=== PATIENT | female | born 1955 | race American Indian/Alaskan Native ===

== ENCOUNTER 2016-10-22 12:22 | Outpatient (CLI) | payer OTHER ==
--- NOTE | 2016-10-23 07:36 | Vascular Lab Report ---
LOWER EXTREMITY VENOUS DUPLEX: REASON FOR EXAM: Pain and swelling of the lower extremities. COMMENTS ON THE RIGHT: All veins visualized are freely compressible without evidence of internal echogenicity. Flow is spontaneous and phasic throughout. COMMENTS ON THE LEFT: All veins visualized are freely compressible without evidence of internal echogenicity. Flow is spontaneous and phasic throughout. 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 IMPRESSION: No evidence of acute or chronic deep venous thrombosis in either lower extremity.
== END 2016-10-22 12:23 | disposition home or self-care (01) ==
LOC: VAS 12:22
PROVIDERS: ATTEND Family Medicine
DX: I82.402 Acute embolism and thrombosis of unspecified deep veins of left lower extremity (principal)
CPT/HCPCS: 93970

== ENCOUNTER 2018-02-11 09:07 | Day surgery (SDC) | payer OTHER ==
[~2018-02-11 09:07] MED LIST: ANCEF/STERILE WATER 2 GM/20 ML IV NR
[2018-02-11] MEDS ORDERED: MARCAINE 0.5% 30 ML INFILTRATI ONE (10:14)
[2018-02-11] MEDS ORDERED: XYLOCAINE 1% 20 mL ONE (10:14)
[2018-02-11] MEDS ORDERED: DILAUDID IV PRN (10:29)
[2018-02-11] MEDS ORDERED: ZOFRAN IV PRN (10:29)
[2018-02-11] MEDS ORDERED: LACTATED RINGERS 1,000 ML IV SCH ×2 (11:00)
[2018-02-11] MEDS ORDERED: VERSED IV NR (11:00)
--- NOTE | 2018-02-11 11:09 | Anesthesia Day of Surgery ---
Anesthesia Day of Surgery - Day of Surgery Patient Examined: Yes Patient H&P Reviewed: Yes Patient is NPO: Yes
--- NOTE | 2018-02-11 11:10 | Anesthesia Consultation ---
Anesthesia Consult and Med Hx Date of service: 02/11/18 - Airway Anesthetic Teeth Evaluation: Good ROM Head & Neck: Adequate Mental/Hyoid Distance: Adequate Mallampati Class: Class II Intubation Access Assessment: Probably Good - Pulmonary Exam CTA: Yes - Cardiac Exam Cardiac Exam: RRR - Pre-Operative Health Status ASA Pre-Surgery Classification: ASA3 Proposed Anesthetic Plan: MAC (Morbid Obesity) - Pulmonary Hx Smoking: Yes Hx Asthma: No COPD: No Hx Pneumonia: No - Cardiovascular System Hx Hypertension: Yes - Endocrine Hx End Stage Renal Disease: No Hx Non-Insulin Dependent Diabetes: No - Hematic Hx Anemia: Yes (RESOLVED) - Other Systems Hx Obesity: Yes (BMI 45.2)
[2018-02-11] MEDS ORDERED: VERSED ONE (11:14)
[2018-02-11] MEDS ORDERED: XYLOCAINE MPF 2% ONE (11:14)
[2018-02-11] MEDS ORDERED: SUBLIMAZE ONE (11:14)
[2018-02-11] MEDS ORDERED: DIPRIVAN 10 MG/ML IV ONE (11:15)
[2018-02-11] MEDS ORDERED: ZOFRAN ONE (11:19)
[2018-02-11] MEDS ORDERED: REGLAN ONE (11:19)
[2018-02-11] MEDS ORDERED: MARCAINE 0.5% INFILTRATI ONE (11:31)
[2018-02-11] MEDS ORDERED: NACL 0.9% IR ONE (11:32)
[2018-02-11] MEDS ORDERED: XYLOCAINE 1% 20 mL INFILTRATI ONE (11:32)
--- NOTE | 2018-02-11 11:44 | Post Operative Note ---
Pre-op diagnosis: STM , left upper back, 2x3 cm Post-op diagnosis: same Findings: see path Procedure: Excision of STM Anesthesia: MAC Surgeon: FINN SALDIVAR Estimated blood loss: none Pathology: list (STM) Specimen disposition: to lab Condition: stable Disposition: PACU
--- NOTE | 2018-02-11 11:47 | Discharge Summary ---
Short Stay Discharge Plan Activity: no restrictions Diet: regular Wound: open to air, other (use ice pack off and on today) Durable Medical Equipment Needed Upon Discharge: other (May shower and wash area in 2 days) Follow up with: ESTRELLA DUMONT MD [Primary Care Provider] - 7 Days FINN SALDIVAR MD [Staff Physician] - 7 Days Prescriptions: HYDROcodone/APAP 5-325 [Russell 5/325] 1 each PO Q6HR PRN #30 tablet PRN Reason: Pain
[2018-02-11 12:26] VITALS: BP 134/54
--- NOTE | 2018-02-11 12:41 | Operative Report ---
PREOPERATIVE DIAGNOSIS: Soft tissue mass, left upper back, 2 x 3 cm. POSTOPERATIVE DIAGNOSIS: Soft tissue mass, left upper back, 2 x 3 cm. PROCEDURE: Excision of soft tissue mass. TYPE OF ANESTHESIA: Local MAC. SURGEON: Purvi Hernandez MD TRACK SUPERINTENDENT: None. ESTIMATED BLOOD LOSS: None. INDICATIONS: This is a 62-year-old woman with soft tissue mass on the left upper back, it was consistent with an epidermal inclusion cyst. Due to the size, the patient wanted to have it removed. DESCRIPTION OF PROCEDURE: The patient brought to the operating room, supine on the table. After adequate IV sedation was obtained, the patient was placed in the right lateral decubitus position with appropriate padding. The area of concern was prepped and draped in the usual fashion. Initially 1% lidocaine mixed with 0.25% Marcaine was infiltrated in field block anesthesia fashion. Next, an elliptical incision was made overlying the mass and the skin and the underlying mass were removed. Hemostasis was ascertained. The specimen was sent to pathology. The wound was irrigated. The subcutaneous tissue was reapproximated using 3-0 Vicryl and skin was reapproximated using 4-0 Monocryl in running subcuticular fashion. The wound was dressed with skin glue. The patient tolerated the procedure. There were no immediate complications. All counts were reported as correct. JOB# [id number] MANDY/MISAEL
--- NOTE | 2018-02-11 16:12 | Post Anesthesia Evaluation ---
- Post Anesthesia Evaluation Patient Participated: Yes Airway Patent: Yes Stable Respiratory Function: Yes Nausea/Vomiting: No Temp > 96.8F: Yes Pain Manageable: Yes Adequeate Hydration: Yes Anesthesia Complications: No Block Receding Appropriately: No Patient on Ventilator: No
== END 2018-02-11 13:00 | disposition home or self-care (01) ==
LOC: OR 09:07
PROVIDERS: ATTEND Surgery
DX: L72.0 Epidermal cyst (principal); I10 Essential (primary) hypertension; E66.01 Morbid (severe) obesity due to excess calories; F17.200 Nicotine dependence, unspecified, uncomplicated; Z68.42 Body mass index [BMI] 45.0-49.9, adult
CPT/HCPCS: 21931; 36415; 84132; 88304; J0690; J2250; J2405; J2704; J2765; J3010; J7120; 88307

== ENCOUNTER 2018-12-19 11:00 | Outpatient (CLI) | payer MEDICAID, MEDICARE | END 2018-12-19 11:01 | disposition home or self-care (01) | LOC: SLR 11:00 | PROVIDERS: ATTEND Otolaryngology | DX: G47.33 Obstructive sleep apnea (adult) (pediatric) (principal); R40.0 Somnolence; R06.83 Snoring; I10 Essential (primary) hypertension; E78.5 Hyperlipidemia, unspecified; E66.01 Morbid (severe) obesity due to excess calories | CPT/HCPCS: G0399 ==

== ENCOUNTER → 2019-01-11 | Outpatient (CLI) | payer MEDICARE | END | disposition home or self-care (01) | LOC: SLR 11:00 | PROVIDERS: ATTEND Otolaryngology | DX: G47.33 Obstructive sleep apnea (adult) (pediatric) (principal); R40.0 Somnolence; R06.83 Snoring; E66.9 Obesity, unspecified; I10 Essential (primary) hypertension; E78.5 Hyperlipidemia, unspecified; Z90.710 Acquired absence of both cervix and uterus | CPT/HCPCS: 95811 ==

== ENCOUNTER 2020-05-13 08:50 | Outpatient (CLI) | payer MEDICARE ==
--- NOTE | 2020-05-15 19:52 | Pulmonary Function Test ---
PULMONARY FUNCTION TEST SPIROMETRY: FVC 2.54 liters, which is 98% of the predicted. FEV1 is 2.02 liters, which is 100% of the predicted. FEV1/FVC ratio is 80. FLOW VOLUME LOOP: FEF 25-75% is 1.65 liters per second, which is 87% of the predicted. IMPRESSION: Normal pulmonary function test. JOB# [id number] RSM/NTS
== END 2020-05-13 08:51 | disposition home or self-care (01) ==
LOC: PF 08:50
PROVIDERS: ATTEND Surgery
DX: E66.01 Morbid (severe) obesity due to excess calories (principal); R06.89 Other abnormalities of breathing
CPT/HCPCS: 94010

== ENCOUNTER 2020-05-31 09:14 | Outpatient (CLI) | payer MEDICARE ==
--- NOTE | 2020-05-31 11:21 | Fluoroscopy Report ---
UPPER GI HISTORY: FUNCTIONAL DYSPEPSIA. Surgical planning for gastric sleeve TECHNIQUE: Single and double contrast barium technique utilized to evaluate the esophagus, stomach, and duodenal C-loop. FINDINGS: To begin the exam, swallowing was evaluated in the lateral position under direct fluorosco py. Swallowing was normal. No mucosal irregularity, mass, mass effect, or critical stenosis. There were no abnormal tertiary c ontractions as seen with dysmotility. A small sliding hiatal hernia and occasional episodes of reflux into the distal esophagus were witnessed during this exam. IMPRESSION: Small hiatal hernia with mild gastroesophageal reflux. Otherwise, unremarkable exam. Fluoroscopic time: 1.7 minutes Number of fluoroscopic images: 23 Signer Name: Agustin Ward Jr, MD Signed: 05/31/2020 11:16 AM Workstation Name: [id number]
== END 2020-05-31 09:15 | disposition home or self-care (01) ==
LOC: FLUORO 09:14
PROVIDERS: ATTEND Surgery
DX: K21.9 Gastro-esophageal reflux disease without esophagitis (principal); K44.9 Diaphragmatic hernia without obstruction or gangrene
CPT/HCPCS: 74246

== ENCOUNTER 2020-06-25 07:24 | Day surgery (SDC) | payer MEDICARE ==
[~2020-06-25 07:24] MED LIST changes: -ANCEF/STERILE WATER 2 GM/20 ML IV NR; +SODIUM CHLORIDE 0.9% 1000 ML 1,000 ML IV SCH
[2020-06-25] MEDS ORDERED: WATER FOR IRRIG STERILE 250 ML BOTTLE IR ONE (07:39)
[2020-06-25] MEDS ORDERED: WATER FOR IRRIG STERILE 1,000 ML BOTTLE ONE (07:39)
--- NOTE | 2020-06-25 07:55 | Anesthesia Day of Surgery ---
Anesthesia Day of Surgery - Day of Surgery Patient Examined: Yes Patient H&P Reviewed: Yes Patient is NPO: Yes
--- NOTE | 2020-06-25 07:55 | Anesthesia Consultation ---
Anesthesia Consult and Med Hx Date of service: 06/25/20 - Airway Anesthetic Teeth Evaluation: Good (#21 broken) ROM Head & Neck: Adequate Mental/Hyoid Distance: Adequate - Pre-Operative Health Status ASA Pre-Surgery Classification: ASA3 Proposed Anesthetic Plan: MAC - Pulmonary Hx Smoking: Yes (quit 50 years ago) Hx Asthma: No Hx Respiratory Symptoms: No SOB: No COPD: No Home Oxygen Therapy: No Hx Pneumonia: No Hx Sleep Apnea: Yes (no CPAP s/p surgery) - Cardiovascular System Hx Hypertension: Yes Hx Coronary Artery Disease: No Hx Heart Attack/AMI: No Hx Angina: No Hx Percutaneous Transluminal Coronary Angioplasty (PTCA): No Hx Cardia Arrhythmia: No Hx Pacemaker: No Hx Internal Defibrillator: No Hx Valvular Heart Disease: No Hx Heart Murmur: No Hx Peripheral Vascular Disease: No - Central Nervous System Hx Neuromuscular Disorder: No Hx Seizures: No CVA: No Hx Back Pain: Yes Hx Psychiatric Problems: No - Gastrointestinal Hx Ulcer: No Hx Gastroesophageal Reflux Disease: Yes (w/ hiatal hernia) - Endocrine Hx Renal Disease: No Hx End Stage Renal Disease: No Hx Cirrhosis: No Hx Liver Disease: No Hx Insulin Dependent Diabetes: No Hx Non-Insulin Dependent Diabetes: No Hx Thyroid Disease: No Hx Hypothyroidism: No Hx Hyperthyroidism: No - Hematic Hx Anemia: Yes (RESOLVED) - Other Systems Hx Alcohol Use: No Hx Substance Use: No Hx Cancer: No Hx Obesity: Yes (BMI 46)
--- NOTE | 2020-06-25 09:52 | Operative Report ---
Operative Report Operative Report: DATE 06/25/2020 SURGERY: Upper endoscopy. SURGEON: Anjali Hankins M.D. PROCEDURE: EGD with biopsy PRE OP DX: morbid obesity, GERD POST OP DX: morbid obesity, GERD, gastritis TYPE OF ANESTHESIA: MAC. ESTIMATED BLOOD LOSS: None. COMPLICATIONS: None. SPECIMENS REMOVED: antral biopsy FINDINGS: 1. Small hiatal hernia, antral gastritis 2. Otherwise, normal esophagus, stomach and first portion of duodenum. INDICATIONS:INDICATION FOR PROCEDURE: Patient is a 64-year-old female with a long history of morbid obesity. She is planned to have a weight loss procedure and is here for preoperative planning EGD. PROCEDURE DETAILS: After consent was reviewed, patient was taken back to the operating room where patient was placed in the left lateral decubitus position and a bite block was placed in the mouth. After a time-out was called, MAC anesthesia was initiated. I then passed the endoscope into her oropharynx, into her esophagus, visualized the entire esophagus, which was all within normal limits. I then visualized the stomach and the first portion of the duodenum and there were no abnormalities I could clearly visualize except for mild gastritis. A cold forceps biopsy of the antrum was taken and will be sent to pathology to evaluate for H.pylori. I then retroflexed the scope in the stomach and visualized the hiatus and I could see a small hiatal hernia. I then desufflated the stomach and removed the endoscope. Patient tolerated procedure well and was transferred to recovery room in good and stable condition.
--- NOTE | 2020-06-25 09:53 | Discharge Summary ---
Providers - Providers Date of Admission: 06/25/2020 Date of discharge: 06/25/20 Attending physician: MELISSA AYOUB MD Primary care physician: ESTRELLA DUMONT Hospitalization Reason for admission: EGD Condition: Good Procedures: EGD Hospital course: Pt presented for a pre-op EGD as part of planning for up coming bariatric surgery. Procedure was uneventful and pt recovered well and was discharged to home. Disposition: DC-01 TO HOME OR SELFCARE Core Measure Documentation - Palliative Care Palliative Care/ Comfort Measures: Not Applicable - Core Measures Any of the following diagnoses?: none Exam - Physical Exam Narrative exam: unchanged from pre-op - Constitutional Vitals: Temp Pulse Resp BP Pulse Ox 98.6 F 76 19 141/73 96 06/25/20 07:30 06/25/20 07:30 06/25/20 07:30 06/25/20 07:30 06/25/20 07:30 Plan Activity: no restrictions Weight Bearing Status: Full Weight Bearing Diet: low carbohydrate Follow up with: ESTRELLA DUMONT MD [Primary Care Provider] - 7 Days
[2020-06-25] MEDS ORDERED: propofoL 200 MG/20 ML VIAL IV ONE ×2 (10:01→10:13)
[2020-06-25] MEDS ORDERED: LIDOCAINE MPF (2%) 20 MG/1 ML VIAL 5 ML ONE (10:13)
[2020-06-25 12:24] VITALS: BP 133/65
--- NOTE | 2020-06-25 13:01 | Post Anesthesia Evaluation ---
- Post Anesthesia Evaluation Patient Participated: Yes Airway Patent: Yes Stable Respiratory Function: Yes Nausea/Vomiting: No Temp > 96.8F: Yes Pain Manageable: Yes Adequeate Hydration: Yes Anesthesia Complications: No
== END 2020-06-25 07:25 | disposition home or self-care (01) ==
LOC: GIO 07:24
PROVIDERS: ATTEND Surgery
DX: K21.9 Gastro-esophageal reflux disease without esophagitis (principal); E66.01 Morbid (severe) obesity due to excess calories; K44.9 Diaphragmatic hernia without obstruction or gangrene; B96.81 Helicobacter pylori [H. pylori] as the cause of diseases classified elsewhere; K29.50 Unspecified chronic gastritis without bleeding; I10 Essential (primary) hypertension; H40.9 Unspecified glaucoma; E78.00 Pure hypercholesterolemia, unspecified; G47.30 Sleep apnea, unspecified; M19.90 Unspecified osteoarthritis, unspecified site; Z96.652 Presence of left artificial knee joint; Z88.8 Allergy status to other drugs, medicaments and biological substances; Z79.899 Other long term (current) drug therapy; Z86.010 Personal history of colon polyps; Z98.49 Cataract extraction status, unspecified eye; Z90.49 Acquired absence of other specified parts of digestive tract; Z90.710 Acquired absence of both cervix and uterus; Z68.42 Body mass index [BMI] 45.0-49.9, adult; Z86.2 Personal history of diseases of the blood and blood-forming organs and certain disorders involving the immune mechanism
CPT/HCPCS: 43239; 88305; J2704; J7030

== ENCOUNTER 2020-07-01 08:03 | Inpatient (IN) | payer OTHER, MEDICARE ==
[2020-06-24 09:30] LABS: Basophils % (Auto) 0.6 % (0.0-1.8); Eosinophils # (Auto) 0.1 K/mm3 (0.0-0.4); Eosinophils % (Auto) 1.2 % (0.0-4.3); Hematocrit 37.6 % (30.3-42.9); Hemoglobin 12.5 gm/dl (10.1-14.3); Lymphocytes # (Auto) 1.8 K/mm3 (1.2-5.4); Lymphocytes % (Auto) 27.9 % (13.4-35.0); Mean Corpuscular HGB Conc 33 % (30-34); Mean Corpuscular Volume 93 fl (79-97); Monocytes # (Auto) 0.5 K/mm3 (0.0-0.8); Monocytes % (Auto) 7.3 % (0.0-7.3); Platelet Count 175 K/mm3 (140-440); Red Blood Count 4.06 M/mm3 (3.65-5.03); Red Cell Distribution Width 13.5 % (13.2-15.2)
[2020-06-24 09:53] LABS: Blood Urea Nitrogen 16 mg/dL (7-17); Calcium 9.5 mg/dL (8.4-10.2); Hemolysis Index 10
[2020-06-24 10:11] LABS: BUN/Creatinine Ratio 23
--- NOTE | 2020-06-24 13:47 | Anesthesia Consultation ---
Anesthesia Consult and Med Hx Date of service: 07/01/20 - Airway Anesthetic Teeth Evaluation: Caps, Crowns ROM Head & Neck: Adequate Mental/Hyoid Distance: Adequate Mallampati Class: Class II Intubation Access Assessment: Probably Good - Pulmonary Exam CTA: Yes - Cardiac Exam Cardiac Exam: RRR - Pre-Operative Health Status ASA Pre-Surgery Classification: ASA3 Proposed Anesthetic Plan: General - Pulmonary Hx Smoking: No Hx Respiratory Symptoms: No Hx Sleep Apnea: Yes (no CPAP s/p surgery) - Cardiovascular System Hx Hypertension: Yes Hx Heart Attack/AMI: No Hx Percutaneous Transluminal Coronary Angioplasty (PTCA): No Hx Cardia Arrhythmia: No - Central Nervous System CVA: No - Gastrointestinal Hx Gastroesophageal Reflux Disease: Yes (w/ hiatal hernia) - Endocrine Hx Renal Disease: No Hx Liver Disease: No Hx Insulin Dependent Diabetes: No Hx Non-Insulin Dependent Diabetes: No Hx Thyroid Disease: No - Other Systems Hx Obesity: Yes (BMI 46) - Additional Comments Anesthesia Medical History Comments: No hx anesthetic complications. Cardiology evaluation reviewed. Normal EF and perfusion study.
[~2020-07-01 08:03] MED LIST changes: +ENOXAPARIN 40 MG/0.4 ML INJ SUB-Q NR; +SCOPOLAMINE TRANSDERMAL PATCH 72 HR TD NR; -SODIUM CHLORIDE 0.9% 1000 ML 1,000 ML IV SCH; +ceFAZolin/Water 2 GM/20 ML 2 GM/20 ML SYRINGE IV NR; +metroNIDAZOLE/NS 500 MG/100 ML 500 MG/100 ML BAG IV NR
--- OUTSIDE RECORDS SUMMARY | 2020-07-01 08:13 | External Medical Summary ---
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 Problem Morbid (severe) E66.01 Active 460127205 obesity due to excess calories Problem Body mass index Z68.42 Active 867012509 (BMI) 45.0-49.9, adult Problem Unspecified M19.90 Active 267655194 osteoarthritis, unspecified site Problem Pure E78.00 Active 348793678 hypercholesterol emia, unspecified ALLERGIES No Known Allergies ENCOUNTERS from 1955 to 2020-06-20 Encounter Location Date Provider Diagnosis [address] Jun, [facility] [address] [place] [id number] IMMUNIZATIONS No Information SOCIAL HISTORY Sex Assigned At : Social History Observation Description Sex Assigned At Unknown REASON FOR REFERRAL from 1955 to 2020-06-20 Diagnosis 1 Morbid (severe) obesity due to excess calories Diagnosis 2 Essential (primary) hyperten david Diagnosis 3 Unspecified osteoarthritis, unspecified site Diagnosis 4 Body mass index (BMI) 45.0-4 9.9, adult Diagnosis 5 Pure hypercholesterolemia, u nspecified Diagnosis 6 Functional dyspepsia Diagnosis 7 Dietary counseling and surve illance Referral Organization [facility] Referring Provider First Name Anjali Referring Provider Last Name Nhi Referring Provider Specialty Surgery Referring Provider Referring Provider email [email or web address] Referred Provider Formerly [facility], - Referral Priority Routine VITAL SIGNS Height 65 in Jun, Weight 281.2 lbs Jun, Temperature 97.8 degrees Fahrenheit Jun, BMI 46.5 kg/m2 Jun, Blood pressure systolic 162 mm Hg Jun, Blood pressure diastolic 96 mm Hg Jun, MEDICATIONS Medication SIG (Take, Route, Notes Start Date End Date Status Frequency, Duration) Zofran 4 MG 1-2 tablet Orally Jun, Acti ve every 4-6 hours for nausea prn for 30 day(s) Amlodipine Besylate 10 1 tablet Orally Once a Active MG day for 30 day(s) Metoprolol-Hydrochloroth 1 tablet with a meal Active iazide 100-50 MG Orally Once a day for 30 day(s) Latanoprost 0.005 % 1 drop into affected Active eye in the evening Ophthalmic Once a day Nexium 40 MG 1 capsule Orally Once Jun, Active a day for 30 day(s) Meloxicam 15 MG 1 tablet Orally Once a Active day for 30 day(s) Hydrocodone-Acetaminophe 15 ml as needed Orally Jun, 20 Jun, Active n 7.5-325 MG/15ML every 6 hrs for 7 days Atorvastatin Calcium 20 1 tablet Orally Once a Active MG day for 30 day(s) PROCEDURES No Information RESULTS No Results REASON FOR VISIT Gastric Sleeve MEDICAL (GENERAL) HISTORY Type Description Date Medical History Morbid (severe) obesity due to excess ca lories Medical History Body mass index (BMI) 45.0-49.9, adult Medical History Unspecified osteoarthritis, unspecified site Medical History Essential (primary) hypertension Medical History Pure hypercholesterolemia, unspecified Surgical History Partial Hysterectomy 12/1986 Surgical History Gallbladder Removal 10/1994 Surgical History Ovarian Cyst Removal 12/1996 Surgical History Nose Surgery 06/2019 Goals Section No Information Health Concerns No Information MEDICAL EQUIPMENT No Information MENTAL STATUS No Information FUNCTIONAL STATUS No Information ASSESSMENTS No Information PLAN OF TREATMENT Medication Medication Name Sig Start Date Stop Date Nexium 40 MG 1 capsule Orally Once a day Jun, for 30 day(s) Zofran 4 MG 1-2 tablet Orally every 4-6 Jun, hours for nausea prn for 30 day(s) Hydrocodone-Acetaminophen 15 ml as needed Orally every 19 Jun, 2 020 Jun, 7.5-325 MG/15ML 6 hrs for 7 days Referrals Referral Date Details Next Appt Details Provider Name:Anjali Hankisn, 2020-06-03 4 09:30:00 AM, [address] [facility], [place], [place], [address], Provider Name:Anjali Hankins, 2020-06-04 0 11:00:00 AM, [address] [facility], [place], [place], [address], Insurance Providers Payer Name Payer Payer Insured Patient Coverage Coverage End Address Phone Name Relationship to Start Date Jeremy e Insured [employer] [phone] Sher Joshi Medicare HMO Jayden KE[place] [id number] [id number]
[2020-07-01] MEDS ORDERED: GLYCOPYRROLATE 0.4 MG/2 ML INJ ONE (08:30)
[2020-07-01] MEDS ORDERED: ONDANSETRON 4 MG/2 ML INJ ONE (08:30)
[2020-07-01] MEDS ORDERED: dexAMETHasone 20 MG/5 ML VIAL ONE (08:30)
[2020-07-01] MEDS ORDERED: ONDANSETRON 4 MG/2 ML INJ IV PRN ×2 (08:37→11:30)
[2020-07-01] MEDS ORDERED: HYDROmorphone 1 MG/1 ML INJ IV PRN ×3 (08:37→11:30)
--- NOTE | 2020-07-01 08:37 | Anesthesia Day of Surgery ---
Anesthesia Day of Surgery - Day of Surgery Patient Examined: Yes Patient H&P Reviewed: Yes Patient is NPO: Yes
[2020-07-01] MEDS ORDERED: propofoL 200 MG/20 ML VIAL IV ONE (08:38)
[2020-07-01] MEDS ORDERED: LIDOCAINE MPF (2%) 20 MG/1 ML VIAL 5 ML ONE (08:38)
[2020-07-01] MEDS ORDERED: SUCCINYLCHOLINE CHLORIDE 200 MG/10 ML INJ MDV ONE (08:38)
[2020-07-01] MEDS ORDERED: ROCURONIUM 50 MG/5 ML INJ IV ONE (08:38)
[2020-07-01] MEDS ORDERED: fentaNYL 100 MCG/2 ML INJ ONE ×2 (08:38)
[2020-07-01] MEDS ORDERED: MIDAZOLAM 2 MG/2 ML INJ IV NR (09:00)
[2020-07-01] MEDS ORDERED: BUPIVACAINE/PF (0.5%) 5 MG/1 ML 30 ML VIAL INFILTRATI ONE (09:08)
[2020-07-01] MEDS ORDERED: LIDOCAINE (1%) 10 MG/1 ML VIAL 20 ML MDV ONE (09:08)
[2020-07-01] MEDS: LACTATED RINGERS 1,000 ML IV SCH ×2 (09:10→20:42)
[2020-07-01] MEDS ORDERED: BUPIVACAINE-EPINEPHRINE/PF 0.5%-1:200,000 (10 ML) VIAL INFILTRATI ONE (09:10)
[2020-07-01 09:38] LABS: Bacteria,Urine 1+ /HPF (Negative); Bilirubin,Urine NEG (Negative); Blood,Urine NEG (Negative); Color,Urine Yellow (Yellow); Hyaline Casts,Urine 3 /LPF; Mucus,Urine FEW /HPF; Protein,Urine <15 mg/dL mg/dL (Negative); Urobilinogen,Urine < 2.0 mg/dL (<2.0)
[2020-07-01] MEDS ORDERED: ePHEDrine SULFATE 50 MG/1 ML INJ ONE (11:19)
[2020-07-01] MEDS ORDERED: HYDROcodone/APAP 7.5-325MG-15ML ORAL LIQD PO PRN (11:30)
[2020-07-01] MEDS ORDERED: SIMETHICONE 80 MG CHEW TAB PO PRN (11:30)
[2020-07-01] MEDS ORDERED: MORPHINE 2 MG/1 ML INJ IV PRN (11:30)
[2020-07-01] MEDS ORDERED: hydrALAZINE 20 MG/1 ML INJ IV PRN (11:30)
[2020-07-01] MEDS ORDERED: LIDOCAINE (1%) 10 MG/1 ML VIAL 20 ML MDV INFILTRATI ONE (11:40)
[2020-07-01] MEDS ORDERED: BUPIVACAINE-EPINEPHRINE/PF 0.5%-1:200,000 (30 ML) VIAL INFILTRATI ONE (11:40)
[2020-07-01] MEDS ORDERED: SODIUM CHLORIDE 0.9% IRRIG SOLN 2000 ML IR ONE (11:42)
[2020-07-01] MEDS ORDERED: METOCLOPRAMIDE 10 MG/2 ML INJ IV PRN (12:00)
[2020-07-01] MEDS ORDERED: SODIUM CHLORIDE 0.9% IRR 1,500 ML BOTTLE IR ONE (12:44)
--- NOTE | 2020-07-01 13:11 | Operative Report ---
Operative Report Operative Report: DATE: 07/01/2020 Surgeon: Anjali Hankins MD Spare Hand surgeon: Sobeida Alvarez CSA Pre-op Dx: morbid obesity, hiatal hernia Post-op Dx: morbid obesity, hiatal hernia Procedure: 1. laparoscopic sleeve gastrectomy, 2. hiatal hernia repair Anesthesia: GETA EBL: ~50ml Specimen: gastric remnant Complication: none immediate Indication: 64 year old female with a history of morbid obesity and hypertension . Pt is here for sleeve gastrectomy for weight loss to achieve healthier weight and improve or resolve his co-morbidities. shee expressed understanding of the risks and benefits. PROCEDURE IN DETAIL: After consent was reviewed, patient was taken back to the operating room, where patient was placed supine on the bed with both arms out. The patient's legs were doubly strapped to the bed. Patient had a foot board in place. Patient had a body warmer placed by anesthesia. General anesthesia was i nduced with successful endotracheal intubation. Patient was then prepped and draped in normal sterile surgical fashion. After a time-out was called, I made a stab incision in the left subcostal area and placed a Veress needle through this incision and insufflated the abdomen to 18 mmHg pressure. I then counted down a handsbreadth below the xiphoid process in the midline and slightly left lateral injected local anesthetic and made about 1 cm transverse incision. I then used a 5-mm Optiview trocar to enter into the abdomen. There was no gross injury to any intra-abdominal structures. I then placed a 30-degree scope through this port and inspected the abdomen. I then placed a 5-mm port in the right upper quadrant, and 1 epigastric area below the costovertebral angle. I then placed a 15-mm port about a handsbreadth in the right mid abdomen. After which a 5mm port was placed in left upper quadrant port along the anterior axillary line in a similar fashion. A liver retractor was placed to the epigastric port to elevate the left lateral lobe and liver. There was a small hiatal hernia appreciated that was accentuated with right and left crural dissection/skeletonization. Hiatal hernia sac was dissected from the crura until the GE junction was resting about 2cm below the level of the diaphragm without tension. An anterior crura- plasty was preformed a U-stitch using surgidac suture. The anterior gastric fat pad was excised. Starting approximately 6 cm proximal to the pylorus, using a LigaSure device the short gastrics were taken all the way to the left lucy. Once the lateral portion of the stomach was mobile anesthesia passed a 40 [place] bougie along the medial aspect to act as a stent. Using serial firings of endoscopic stapler to gold, followed by 4 blue, the lateral portion of the stomach was transected making sure to did not close to the 2 cm to the incisura. The sleeve stomach was seen to be without kink obstruction or twisting. The pressure was decreased to 10 mmHg. The staple line was inspected for approximately 10 minutes. There was diffuse blood oozing along the majority of the staple line. clips were placed along the staple line area achieving adequate hemostasis. Tisseel was then sprayed along the entirety of the staple line. The liver retractor was removed. This was after the gastric remnant was grasped and pulled into the 15 mm trocar site. The stomach was extracted via the 15 mm trocar site. After the fascia had to be stretched with a Shannon clamp to easily remove the stomach, the fascia was closed using a jaci darin device at the level of the fascia with an 0 PDS. trocars were removed under direct visualization. All skin incisions were closed with 4-0 Monocryl followed by Dermabond. Patient was awoken, extubated, and taken to recovery stable condition. All counts were correct.
--- NOTE | 2020-07-01 14:10 | Post Anesthesia Evaluation ---
- Post Anesthesia Evaluation Patient Participated: Yes Airway Patent: Yes Stable Respiratory Function: Yes Nausea/Vomiting: No Temp > 96.8F: Yes Pain Manageable: Yes Adequeate Hydration: Yes Anesthesia Complications: No Block Receding Appropriately: Not Applicable Patient on Ventilator: No
[2020-07-01] MEDS: metroNIDAZOLE/NS 500 MG/100 ML 500 MG/100 ML BAG IV SCH ×2 (16:58→21:50)
[2020-07-01] MEDS: KETOROLAC 30 MG/1 ML INJ IV SCH ×2 (17:01→20:46)
[2020-07-01] MEDS: ceFAZolin/NS 1 GM/50 ML 1 GM/50 ML BAG IV SCH (17:37)
[2020-07-01] MEDS ORDERED: METOPROLOL TARTRATE 50 MG TAB PO SCH (22:00)
[2020-07-02] MEDS: ceFAZolin/NS 1 GM/50 ML 1 GM/50 ML BAG IV SCH (01:49)
[2020-07-02] MEDS: KETOROLAC 30 MG/1 ML INJ IV SCH ×4 (01:49→18:21)
[2020-07-02] MEDS: metroNIDAZOLE/NS 500 MG/100 ML 500 MG/100 ML BAG IV SCH (05:43)
[2020-07-02 07:12] LABS: Basophils % (Auto) 0.2 % (0.0-1.8); Hematocrit 38.6 % (30.3-42.9); Lymphocytes # (Auto) 1.3 K/mm3 (1.2-5.4); Mean Corpuscular HGB Conc 34 % (30-34); Mean Corpuscular Volume 93 fl (79-97); Monocytes # (Auto) 0.5 K/mm3 (0.0-0.8); Monocytes % (Auto) 3.5 % (0.0-7.3); Platelet Count 184 K/mm3 (140-440); Red Blood Count 4.13 M/mm3 (3.65-5.03); Red Cell Distribution Width 13.4 % (13.2-15.2)
[2020-07-02 08:40] LABS: BUN/Creatinine Ratio 10; Blood Urea Nitrogen 9 mg/dL (7-17)
[2020-07-02 08:42] LABS: Alanine Aminotransferase 34 units/L (7-56); Albumin 4.2 g/dL (3.9-5); Calcium 9.3 mg/dL (8.4-10.2); Hemolysis Index 1
[2020-07-02] MEDS ORDERED: METOPROLOL TARTRATE 50 MG TAB PO SCH (10:00)
--- NOTE | 2020-07-02 11:52 | Progress Note ---
Assessment and Plan POD#1 s/p lap sleeve gastrectomy with hiatal hernia repair. Afebrile and stable with common post op reactive leukocytosis. Not showing any clinical signs of leak or bleeding. Will continue clear liquids and encourage more ambulation today. Will recheck labs in am. If continues to do well, will d/c tomorrow. Subjective Date of service: 07/02/20 Patient Reports: Positive: no new complaints, pain is less, tolerating liquids well. Negative: nausea (no acute events overnight. She says she is feeling better than yesterday and is ambulating well. ), vomiting Objective Vital Signs - 12hr 07/02/20 07/02/20 07/02/20 00:15 01:23 02:31 Temperature Pulse Rate 95 H 90 75 Respiratory Rate Blood Pressure O2 Sat by Pulse 95 97 98 Oximetry 07/02/20 07/02/20 07/02/20 04:04 05:50 08:01 Temperature 98.0 F 97.7 F Pulse Rate 87 67 73 Respiratory 18 Rate Blood Pressure 128/52 129/52 O2 Sat by Pulse 96 96 98 Oximetry - General physical appearance well developed, no distress, no pain, obese - Respiratory normal expansion, normal respiratory effort - Abdomen soft, tender (appropriatley tender to palpation, incisions c/d/i), not distended, not guarding - Labs 07/02/20 06:51 07/02/20 06:51 Diabetes panel 07/02/20 Range/Units 06:51 Sodium 137 (137-145) mmol/L Potassium 3.6 (3.6-5.0) mmol/L Chloride 98.7 (98-107) mmol/L Carbon Dioxide 28 (22-30) mmol/L BUN 9 (7-17) mg/dL Creatinine 0.9 (0.6-1.2) mg/dL Glucose 143 H (65-100) mg/dL Calcium 9.3 (8.4-10.2) mg/dL AST 36 (5-40) units/L ALT 34 (7-56) units/L Alkaline Phosphatase 50 (35-129) units/L Total Protein 7.6 (6.3-8.2) g/dL Albumin 4.2 (3.9-5) g/dL Calcium panel 07/02/20 Range/Units 06:51 Calcium 9.3 (8.4-10.2) mg/dL Albumin 4.2 (3.9-5) g/dL Pituitary panel 07/02/20 Range/Units 06:51 Sodium 137 (137-145) mmol/L Potassium 3.6 (3.6-5.0) mmol/L Chloride 98.7 (98-107) mmol/L Carbon Dioxide 28 (22-30) mmol/L BUN 9 (7-17) mg/dL Creatinine 0.9 (0.6-1.2) mg/dL Glucose 143 H (65-100) mg/dL Calcium 9.3 (8.4-10.2) mg/dL Adrenal panel 07/02/20 Range/Units 06:51 Sodium 137 (137-145) mmol/L Potassium 3.6 (3.6-5.0) mmol/L Chloride 98.7 (98-107) mmol/L Carbon Dioxide 28 (22-30) mmol/L BUN 9 (7-17) mg/dL Creatinine 0.9 (0.6-1.2) mg/dL Glucose 143 H (65-100) mg/dL Calcium 9.3 (8.4-10.2) mg/dL Total Bilirubin 0.40 (0.1-1.2) mg/dL AST 36 (5-40) units/L ALT 34 (7-56) units/L Alkaline Phosphatase 50 (35-129) units/L Total Protein 7.6 (6.3-8.2) g/dL Albumin 4.2 (3.9-5) g/dL
[2020-07-02] MEDS: PANTOPRAZOLE 40 MG INJ IV SCH (12:32)
[2020-07-02] MEDS: ENOXAPARIN 40 MG/0.4 ML INJ SUB-Q SCH (12:33)
[2020-07-02] MEDS: LACTATED RINGERS 1,000 ML IV SCH ×2 (12:38→21:31)
[2020-07-02] MEDS: amLODIPine 10 MG TAB PO SCH (12:45)
[2020-07-02] MEDS ORDERED: LATANOPROST 0.005% OPHTH SOLN 2.5 ML OU SCH (18:00)
[2020-07-03] MEDS: KETOROLAC 30 MG/1 ML INJ IV SCH ×3 (00:27→11:44)
[2020-07-03 06:19] LABS: Basophils % (Auto) 0.4 % (0.0-1.8); Eosinophils # (Auto) 0.1 K/mm3 (0.0-0.4); Eosinophils % (Auto) 0.9 % (0.0-4.3); Hematocrit 30.9 % (30.3-42.9); Hemoglobin 10.5 gm/dl (10.1-14.3); Lymphocytes % (Auto) 19.6 % (13.4-35.0); Mean Corpuscular HGB Conc 34 % (30-34); Mean Corpuscular Volume 93 fl (79-97); Monocytes # (Auto) 0.6 K/mm3 (0.0-0.8); Monocytes % (Auto) 5.6 % (0.0-7.3); Platelet Count 144 K/mm3 (140-440); Red Blood Count 3.33 M/mm3 (3.65-5.03); Red Cell Distribution Width 13.4 % (13.2-15.2)
[2020-07-03 06:33] LABS: Alanine Aminotransferase 20 units/L (7-56); Albumin 3.5 g/dL (3.9-5); BUN/Creatinine Ratio 13; Blood Urea Nitrogen 9 mg/dL (7-17); Calcium 8.8 mg/dL (8.4-10.2); Hemolysis Index 6
[2020-07-03 07:38] VITALS: BP 141/64
--- NOTE | 2020-07-03 09:00 | Discharge Summary ---
Providers - Providers Date of Admission: 07/01/20 08:03 Date of discharge: 07/03/20 Attending physician: MELISSA AYOUB MD 07/01/20 10:22 Physical Therapy Evaluation and Treat [CONS] Routine Comment: Reason For Exam: post op bariatric, eval for ambulation & transfer Primary care physician: ESTRELLA DUMONT Hospitalization Reason for admission: s/p lap sleeve gastrectomy for morbid obesity Condition: Good Procedures: lap sleeve gastrectomy with hiatal hernia repair Hospital course: Pt was admitted after an uncomplicated lap sleeve gastrectomy and hiatal hernia repair. Pt was monitored closely evaluating labs, vitals, and physical exam. Pain was controlled, tolerating clear liquids and ambulating well. Pt showed no clinical signs of leak or bleeding upon discharge. Disposition: TO HOME OR SELFCARE Core Measure Documentation - Palliative Care Palliative Care/ Comfort Measures: Not Applicable - Core Measures Any of the following diagnoses?: none Exam - Constitutional Vitals: Temp Pulse Resp BP Pulse Ox 98.0 F 58 L 22 141/64 95 07/03/20 07:15 07/03/20 07:15 07/03/20 07:15 07/03/20 07:15 07/03/20 07:15 General appearance: Present: no acute distress, obese - Respiratory Respiratory effort: normal - Extremities Extremities: no ischemia - Abdominal General gastrointestinal: Present: soft, other (incisions c/e/i, appropriately tender to palpation). Absent: distended, rigid Plan Activity: no restrictions Weight Bearing Status: Full Weight Bearing Diet: clear liquids Wound: open to air Special Instructions: no heavy lifting Additional Instructions: may shower, dont lift more than 20lbs Follow up with: ESTRELLA DUMONT MD [Primary Care Provider] - 7 Days
[2020-07-03] MEDS: ENOXAPARIN 40 MG/0.4 ML INJ SUB-Q SCH (11:35)
[2020-07-03] MEDS: PANTOPRAZOLE 40 MG INJ IV SCH (11:35)
[2020-07-03] MEDS: amLODIPine 10 MG TAB PO SCH (11:36)
[2020-07-04] MEDS ORDERED: PANTOPRAZOLE 40 MG TAB PO SCH (07:30)
== END 2020-07-03 13:30 | disposition home or self-care (01) | DRG 621 ==
LOC: 3A 08:03 → 3B-SURG 17:51
PROVIDERS: ADMIT Surgery; ATTEND Surgery
PROC: 0DB64ZZ Excision of Stomach, Percutaneous Endoscopic Approach (ICD-10-PCS; principal; 2020-07-01)
PROC: 0BQT4ZZ Repair Diaphragm, Percutaneous Endoscopic Approach (ICD-10-PCS; 2020-07-01)
DX: E66.01 Morbid (severe) obesity due to excess calories (principal); K44.9 Diaphragmatic hernia without obstruction or gangrene; Z68.42 Body mass index [BMI] 45.0-49.9, adult; I10 Essential (primary) hypertension; K21.9 Gastro-esophageal reflux disease without esophagitis; M19.90 Unspecified osteoarthritis, unspecified site; E78.00 Pure hypercholesterolemia, unspecified; K30 Functional dyspepsia; Z20.828 Contact with and (suspected) exposure to other viral communicable diseases; Z91.018 Allergy to other foods
CPT/HCPCS: 36415; 80048; 80053; 81001; 85025; 88307; G0378; A4217; C9113; C9250; J0330; J0690; J1100; J1170; J1650; J1885; J2405; J2704; J3010; J7120; U0003

== ENCOUNTER 2020-07-30 11:11 | Outpatient (CLI) | payer MEDICARE ==
[2020-07-30 11:40] LABS: Basophils # (Auto) 0.1 K/mm3 (0.0-0.1); Eosinophils # (Auto) 0.1 K/mm3 (0.0-0.4); Eosinophils % (Auto) 1.1 % (0.0-4.3); Hematocrit 37.5 % (30.3-42.9); Hemoglobin 12.2 gm/dl (10.1-14.3); Lymphocytes # (Auto) 1.9 K/mm3 (1.2-5.4); Lymphocytes % (Auto) 35.3 % (13.4-35.0); Mean Corpuscular HGB Conc 32 % (30-34); Mean Corpuscular Volume 92 fl (79-97); Monocytes # (Auto) 0.3 K/mm3 (0.0-0.8); Monocytes % (Auto) 4.8 % (0.0-7.3); Platelet Count 182 K/mm3 (140-440); Red Blood Count 4.08 M/mm3 (3.65-5.03); Red Cell Distribution Width 14.2 % (13.2-15.2)
[2020-07-30 12:03] LABS: Alanine Aminotransferase 30 units/L (7-56); Albumin 4.3 g/dL (3.9-5); Blood Urea Nitrogen 15 mg/dL (7-17); Calcium 9.9 mg/dL (8.4-10.2); Chol/HDL Ratio 3.36 %; HDL Cholesterol 58 mg/dL (40-59); Hemolysis Index 10; Iron 88 ug/dL (37-170); LDL Cholesterol,Direct 128 mg/dL (50-130)
[2020-07-30 12:05] LABS: BUN/Creatinine Ratio 21
== END 2020-07-30 11:12 | disposition home or self-care (01) ==
LOC: LAB 11:11
PROVIDERS: ATTEND Surgery
DX: E66.01 Morbid (severe) obesity due to excess calories (principal); K30 Functional dyspepsia; E11.9 Type 2 diabetes mellitus without complications; Z98.84 Bariatric surgery status
CPT/HCPCS: 36415; 80053; 80061; 82306; 82607; 83540; 84425; 84443; 85025

== ENCOUNTER 2021-01-22 10:25 | Outpatient (CLI) | payer MEDICARE, MEDICAID ==
[2021-01-22 11:12] LABS: Basophils % (Auto) 0.8 % (0.0-1.8); Eosinophils # (Auto) 0.1 K/mm3 (0.0-0.4); Hematocrit 37.2 % (30.3-42.9); Hemoglobin 12.4 gm/dl (10.1-14.3); Lymphocytes % (Auto) 37.2 % (13.4-35.0); Mean Corpuscular HGB Conc 33 % (30-34); Mean Corpuscular Volume 94 fl (79-97); Monocytes # (Auto) 0.4 K/mm3 (0.0-0.8); Platelet Count 152 K/mm3 (140-440); Red Blood Count 3.94 M/mm3 (3.65-5.03); Red Cell Distribution Width 13.4 % (13.2-15.2)
[2021-01-22 11:37] LABS: % Iron Saturation 31.85 %; Alanine Aminotransferase 20 units/L (7-56); Albumin 4.4 g/dL (3.9-5); Blood Urea Nitrogen 10 mg/dL (7-17); Calcium 9.5 mg/dL (8.4-10.2); Chol/HDL Ratio 2.08 %; HDL Cholesterol 72 mg/dL (40-59); Hemolysis Index 0; Iron 79 ug/dL (37-170); LDL Cholesterol,Direct 75 mg/dL (50-130); Total Iron Binding Capacity 248 mcg/dL (250-450)
[2021-01-22 11:45] LABS: BUN/Creatinine Ratio 17
[2021-01-25 15:09] LABS: Vitamin D, 25-OH, D2 <4 ng/mL
== END 2021-01-22 10:26 | disposition home or self-care (01) ==
LOC: LAB 10:25
PROVIDERS: ATTEND Surgery
DX: E11.9 Type 2 diabetes mellitus without complications (principal); K30 Functional dyspepsia; E55.9 Vitamin D deficiency, unspecified; E66.01 Morbid (severe) obesity due to excess calories; Z98.84 Bariatric surgery status; K90.9 Intestinal malabsorption, unspecified
CPT/HCPCS: 36415; 80053; 80061; 82306; 82607; 82728; 83036; 83550; 84425; 84443; 85025